=== PATIENT | female | born 1970 | race Caucasian/White ===

== ENCOUNTER → 2018-07-15 | Outpatient (CLI) | payer BC ==
--- NOTE | 2018-07-18 10:03 | MM ---
Reason for exam: screening (asymptomatic). Last mammogram was performed 3 years and 1 month ago. History: Patient had first child at age 40. Took hormonal contraceptives for 15 years. Physical Findings: A clinical breast exam by your physician is recommended on an annual basis and results should be correlated with mammographic findings. MG 3D Screening Mammo W/Cad Bilateral CC and MLO view(s) were taken. Prior study comparison: June 12, 2015, bilateral MG screening mammo w CAD. July 27, 2012, bilateral screening mammogram free. The breast tissue is heterogeneously dense. This may lower the sensitivity of mammography. There are benign appearing round calcifications bilaterally. There is no discrete abnormality. ASSESSMENT: Benign, BI-RAD 2 RECOMMENDATION: Routine screening mammogram of both breasts in 1 year.
== END | disposition home or self-care (01) ==
LOC: RADMAMWWP 14:01
PROVIDERS: ATTEND Obstetrics & Gynecology
DX: Z12.31 Encounter for screening mammogram for malignant neoplasm of breast (principal)
CPT/HCPCS: 77063; 77067

== ENCOUNTER → 2020-05-31 | Outpatient (CLI) | payer BC ==
--- NOTE | 2020-06-04 08:23 | MM ---
Reason for exam: screening (asymptomatic). Last mammogram was performed 1 year and 11 months ago. History: Patient had first child at age 40. Took hormonal contraceptives for 15 years. Physical Findings: A clinical breast exam by your physician is recommended on an annual basis and results should be correlated with mammographic findings. MG Screening Mammo w CAD Bilateral CC and MLO view(s) were taken. Prior study comparison: July 15, 2018, bilateral MG 3d screening mammo w/cad. June 12, 2015, bilateral MG screening mammo w CAD. The breast tissue is heterogeneously dense. This may lower the sensitivity of mammography. Benign appearing bilateral calcifications. No significant changes when compared with prior studies. ASSESSMENT: Benign, BI-RAD 2 RECOMMENDATION: Routine screening mammogram of both breasts in 1 year.
== END | disposition home or self-care (01) ==
LOC: RADMAMWWP 07:39
PROVIDERS: ATTEND Obstetrics & Gynecology
DX: Z12.31 Encounter for screening mammogram for malignant neoplasm of breast (principal)
CPT/HCPCS: 77067

== ENCOUNTER → 2020-09-11 | Outpatient (CLI) | payer BC ==
[2020-09-11 19:40] LABS: Codfish IgE <0.10 kU/L; Egg White IgE <0.10 kU/L
[2020-09-11 19:42] LABS: Peanut IgE <0.10 kU/L; Soybean IgE <0.10 kU/L
[2020-09-11 19:43] LABS: Clam IgE <0.10 kU/L; Shrimp IgE <0.10 kU/L; Walnut IgE (Food) <0.10 kU/L
[2020-09-11 19:44] LABS: Scallop IgE <0.10 kU/L
[2020-09-12 12:04] LABS: ANA Pattern Speckled
== END | disposition home or self-care (01) ==
LOC: LABWHC1 13:06
PROVIDERS: ATTEND Otolaryngology
DX: J30.89 Other allergic rhinitis (principal); R53.83 Other fatigue; R21 Rash and other nonspecific skin eruption
CPT/HCPCS: 36415; 82785; 85652; 86003; 86038; 86039; 86431

== ENCOUNTER 2022-10-20 08:56 | Day surgery (SDC) | payer BC ==
[2022-10-16 09:14] VITALS: BMI 26.6
[~2022-10-20 08:56] MED LIST: LACTATED RINGERS 1,000 ML IV SCH; LIDOCAINE 1% (10MG/ML) FOR IV START INTRADERMA PRN
[2022-10-20 09:58] VITALS: RESP 16; TEMP 98
[2022-10-20] MEDS ORDERED: PROPOFOL 10 MG/ML 20 ML VIAL IV ONE (10:18)
[2022-10-20] MEDS ORDERED: LIDOCAINE 2% INJ 20 MG/ML (2 ML VIAL) ONE (10:18)
--- NOTE | 2022-10-20 10:26 | P.GSHP ---
History of Present Illness H&P Date: 10/20/22 Chief Complaint: Colon cancer screening 52-year-old female here today for colonoscopy. She has not had 1 previously. No bowel related complaints. No family history of colon cancer. Past Medical History Past Medical History: No Reported History Additional Past Medical History / Comment(s): rosacea History of Any Multi-Drug Resistant Organisms: None Reported Past Surgical History: No Surgical Hx Reported Past Anesthesia/Blood Transfusion Reactions: No Reported Reaction, Motion Sickness Smoking Status: Former smoker - Past Family History Father Family Medical History: No Reported History Mother History Unknown: Yes Medications and Allergies Home Medications Medication Instructions Recorded Confirmed Type Cholecalciferol [Vitamin D3 (25 2,000 unit PO DAILY 10/16/22 10/20/22 History Mcg = 1000 Iu)] Monocycline 50 mg TOPICAL DAILY PRN 10/16/22 10/20/22 History Vitamin B Complex/Folic Acid 0.4 mg PO DAILY 10/16/22 10/20/22 History [Vitamin B Complex Tablet] Zinc Gluconate [Zinc] 50 mg PO DAILY 10/16/22 10/20/22 History Allergies Allergy/AdvReac Type Severity Reaction Status Date / Time No Known Allergies Allergy Verified 10/20/22 09:43 Surgical - Exam Vital Signs Temp Pulse Resp BP Pulse Ox 98.0 F 74 16 110/63 98 10/20/22 09:50 10/20/22 09:50 10/20/22 09:50 10/20/22 09:50 10/20/22 09:50 Physical exam: General: Well-developed, well-nourished HEENT: Normocephalic, sclerae nonicteric Abdomen: Nontender, nondistended Extremities: No edema Neuro: Alert and oriented Assessment and Plan (1) Colon cancer screening Narrative/Plan: Will proceed with colonoscopy at this time. Current Visit: Yes Status: Acute Code(s): Z12.11 - ENCOUNTER FOR SCREENING FOR MALIGNANT NEOPLASM OF COLON SNOMED Code(s): 050305398
--- NOTE | 2022-10-20 10:41 | P.PCN ---
Date of Procedure: 10/20/22 Procedure(s) Performed: PREOPERATIVE DIAGNOSIS: Colon cancer screening POSTOPERATIVE DIAGNOSIS: Transverse colon polyp, diverticulosis PROCEDURE: Colonoscopy with snare polypectomy ANESTHESIA: MAC SURGEON: Carlos Alfaro M.D. SPECIMENS: Polyp ENDOSCOPIC PROCEDURE: The patient was placed on the endoscopy table in the left decubitus position. The Olympus colonoscope was inserted into the anus and passed under direct visualization to the base of the cecum. The appendiceal orifice was visualized. From that point the scope was slowly withdrawn inspecting all surfaces carefully. There were no neoplastic inflammatory or polypoid lesions throughout the cecum or ascending colon. In the transverse colon a small polyp was seen and removed using snare cautery technique. The remainder of the transverse descending sigmoid and rectum appeared normal. Patient had mild scattered diverticulosis. Digital rectal examination was normal. The patient was taken to the recovery room in stable condition per anesthesia guidelines. RECOMMENDATIONS: Await biopsy results. Anticipate repeat colonoscopy 5-7 years.
[2022-10-20 11:02] VITALS: BP 102/64; PULSE 82
== END 2022-10-20 11:25 | disposition home or self-care (01) ==
LOC: ORWHC2ENDO 08:56
PROVIDERS: ATTEND Surgery
DX: Z12.11 Encounter for screening for malignant neoplasm of colon (principal); K63.5 Polyp of colon; K57.30 Diverticulosis of large intestine without perforation or abscess without bleeding; Z87.891 Personal history of nicotine dependence; Z79.899 Other long term (current) drug therapy
CPT/HCPCS: 81025; 88305; 45385; J2704; J2001

== ENCOUNTER → 2023-01-29 | Outpatient (CLI) | payer BC ==
--- NOTE | 2023-02-01 16:25 | MM ---
Reason for Exam: Screening (asymptomatic). Last mammogram was performed 2 year(s) and 8 month(s) ago. Patient History: Menarche at age 14. First Full-Term at age 40. Late child-bearing (after 30). Patient used Hormonal Contraceptives for 15 years. Last menstrual period: 01/10/2023 Risk Values: Elba 5 year model risk: 1.4%. NCI Lifetime model risk: 12.0%. Prior Study Comparison: 06/12/2015 Bilateral Screening Mammogram, [facility]. 07/15/2018 Bilateral Screening Mammogram, [facility]. 05/31/2020 Bilateral Screening Mammogram, [facility]. Tissue Density: The breast tissue is extremely dense which could obscure a lesion on mammography. Findings: Analyzed By CAD. Pattern appears symmetrical and stable. No significant interval change is evident. No suspicious groups of microcalcifications, spiculated or lobular masses, architectural distortion or other secondary signs of malignancy are mammographically apparent. Overall Assessment: Benign, BI-RAD 2 Management: Screening Mammogram of both breasts in 1 year. A negative mammogram report should not preclude additional follow up of suspicious palpable abnormalities. Patient should continue monthly self breast exam. A clinical breast exam by your physician is recommended on an annual basis and results should be correlated with mammographic findings. Electronically signed and approved by: Alon Almaraz D.O. Radiologis
== END | disposition home or self-care (01) ==
LOC: RADMAMWWP 11:19
PROVIDERS: ATTEND Family Medicine
DX: Z12.31 Encounter for screening mammogram for malignant neoplasm of breast (principal)
CPT/HCPCS: 77067

== ENCOUNTER → 2023-04-08 | Outpatient (CLI) | payer BC ==
--- NOTE | 2023-04-09 15:13 | US ---
EXAMINATION TYPE: US transvaginal DATE OF EXAM: 04/08/2023 COMPARISON: NONE CLINICAL INDICATION: Female, 53 years old with history of N93.8 DUB; DUB TECHNIQUE: Transvaginal (TV). EXAM MEASUREMENTS: Uterus: 7.4 x 4.6 x 5.5 cm Endometrial Stripe: .5 cm Right Ovary: 2.2 x 2.8 x 1.6 cm Left Ovary: 4.0 x 2.6 x 3.4 cm 1. Uterus: Anteverted Nabothian cysts seen. 2. Endometrium: wnl 3. Right Ovary: Anechoic areas seen largest 1.9 x 1.4 x 1.5 cm. This may be 2 adjacent cysts or a se ptated cyst. Follow-up is recommended. 4. Left Ovary: Multiple follicles seen. 5. Bilateral Adnexa: wnl 6. Posterior cul-de-sac: wnl IMPRESSION: 1. Cysts and follicles present bilaterally. Follow-up is recommended.
== END | disposition home or self-care (01) ==
LOC: RADUSWWP 16:03
PROVIDERS: ATTEND Obstetrics & Gynecology
DX: N83.02 Follicular cyst of left ovary (principal); N83.01 Follicular cyst of right ovary; N93.8 Other specified abnormal uterine and vaginal bleeding
CPT/HCPCS: 76830

== ENCOUNTER → 2024-03-17 | Outpatient (CLI) | payer BC ==
[2024-03-17 15:22] LABS: LDL Cholesterol,Calculated 98.9 mg/dL (0.0-131.0)
== END | disposition home or self-care (01) ==
LOC: LABWHC1 08:23
PROVIDERS: ATTEND Family Medicine
DX: Z00.00 Encounter for general adult medical examination without abnormal findings (principal)
CPT/HCPCS: 36415; 80061; 83036

== ENCOUNTER → 2024-04-03 | Outpatient (CLI) | payer BC ==
--- NOTE | 2024-04-03 15:47 | US ---
EXAMINATION TYPE: US transvaginal DATE OF EXAM: 04/03/2024 COMPARISON: 04/08/2023 CLINICAL INDICATION: Female, 54 years old with history of N83.201 UNSPECIFIED OVARIAN CYST,; Second episode of menses lasting 5ish weeks. skipped cycles in November, December, and January. TECHNIQUE: TV only ordered Date of LMP: october EXAM MEASUREMENTS: Uterus: 9.4 x 4.4 x 5.3 cm Endometrial Stripe: 1.0 cm Right Ovary: 4.5 x 3.4 x 4.3 cm Left Ovary: 2.5 x 1.3 x 0.9 cm 1. Uterus: ? Hyperechoic area posterior fundal area = 3.4 x 2.1 x 2.5 cm 2. Endometrium: wnl 3. Right Ovary: Simple cyst redemonstrated = 3.8 x 2.7 x 3.7 cm 4. Left Ovary: wnl 5. Bilateral Adnexa: wnl 6. Posterior cul-de-sac: wnl Incidental nabothian cysts. Measured region of the endometrium measures up to 1 cm. There is a hypere choic region in the posterior fundal area which may represent endometrium versus fibroid measuring up to 2.1 cm in thickness. Increased size of right ovarian simple thin-walled cyst. IMPRESSION: 1. Hyperechoic region within the posterior uterine fundus which may represent endometrial thickening versus fibroid. Further evaluation with pelvic MRI is recommended. 2. Increased size of right ovarian simple thin-walled cyst. This can be further evaluated with recom mendation for #1.
--- NOTE | 2024-04-04 09:53 | MM ---
Reason for Exam: Screening (asymptomatic). Last mammogram was performed 1 year(s) and 2 month(s) ago. Patient History: Menarche at age 14. First Full-Term at age 40. Late child-bearing (after 30). Patient has history of breast feeding. Patient used Hormonal Contraceptives for 15 years. Last menstrual period: 02/22/2023 Risk Values: Elba 5 year model risk: 1.5%. NCI Lifetime model risk: 11.8%. Prior Study Comparison: 07/15/2018 Bilateral Screening Mammogram, [facility]. 05/31/2020 Bilateral Screening Mammogram, [facility]. 01/29/2023 Bilateral MG screening mammo w CAD, [facility]. Tissue Density: The breasts are heterogeneously dense, which may obscure small masses. Findings: Analyzed By CAD. There is no suspicious group of microcalcifications or new suspicious mass in either breast. 9 calcifications. Overall Assessment: Benign, BI-RAD 2 Management: Screening Mammogram of both breasts in 1 year. . Patient should continue monthly self-breast exams. A clinical breast exam by your physician is recommended on an annual basis. This exam should not preclude additional follow-up of suspicious palpable abnormalities. Note on Elba scores and lifetime risk: 1. A Elba score greater than 3% is considered moderate risk. If this is the case, consider specialist referral to assess eligibility for a risk reducing agent. 2. If overall lifetime risk for the development of breast cancer is 20% or higher, the patient may qualify for future screening with alternating mammogram and breast MRI. Electronically signed and approved by: Jason Taylor M.D. Radiologis
== END | disposition home or self-care (01) ==
LOC: RADMAMWWP 14:44
PROVIDERS: ATTEND Family Medicine
DX: Z12.31 Encounter for screening mammogram for malignant neoplasm of breast (principal); N83.201 Unspecified ovarian cyst, right side
CPT/HCPCS: 76830; 77063; 77067

== ENCOUNTER 2024-07-17 08:35 | Day surgery (SDC) | payer BC ==
[2024-07-17] MEDS: LIDOCAINE 1%-EPI 1:100,000 20 ML VIAL SQ ONE (07:27)
[2024-07-17] MEDS: SILVER NITRATE APPLICATOR 1 EACH STICK..EA. TOPICAL ONE (07:28)
[~2024-07-17 08:35] MED LIST changes: -LACTATED RINGERS 1,000 ML IV SCH; +Pre Op ABX Message 1 EACH MISC MISCELLANE ONE; +droPERidol 5 MG/2 ML VIAL IVP ONE
[2024-07-17] MEDS: IV FLUID CONTINUATION 1,000 ML IV ONE (08:49)
[2024-07-17] MEDS: LACTATED RINGERS 1,000 ML IV SCH (09:13)
[2024-07-17] MEDS: ONDANSETRON 4 MG/2 ML VIAL IVP ONE (09:13)
[2024-07-17] MEDS: DEXAMETHASONE SOD PHOSPHATE 4 MG/ML 1 ML VIAL IV ONE (09:13)
[2024-07-17] MEDS ORDERED: KETOROLAC 15 MG/ML 1 ML VIAL ONE (09:30)
[2024-07-17] MEDS ORDERED: PROPOFOL 10 MG/ML 20 ML VIAL IV ONE (09:30)
[2024-07-17] MEDS ORDERED: fentaNYL (PF) 50 MCG/ML 2 ML AMP ONE (09:30)
[2024-07-17] MEDS ORDERED: MIDAZOLAM 2 MG/2 ML VIAL ONE (09:30)
[2024-07-17] MEDS ORDERED: LIDOCAINE 1% INJ 10MG/ML (20 ML MDV) ONE (09:30)
--- NOTE | 2024-07-17 10:11 | P.OP ---
Date of Procedure: 07/17/24 Preoperative Diagnosis: Dysfunctional uterine bleeding, heavy menstrual bleeding Postoperative Diagnosis: Same Procedure(s) Performed: Hysteroscopy, dilation curettage, endometrial ablation with NovaSure Anesthesia: MAC Surgeon: Monika Mendez Estimated Blood Loss (ml): 5 IV fluids (ml): 500 Urine output (ml): 50 Pathology: other (Endometrial curettings) Condition: stable Disposition: PACU Indications for Procedure: Dysfunctional uterine bleeding, heavy at times. Last menstrual cycle lasting 14+ days Operative Findings: Normal-appearing atrial cavity Description of Procedure: Patient was taken back to the operating suite where general anesthesia was obtained without difficulty by the anesthesia department. She was prepped and draped in the normal sterile fashion dorsolithotomy position. A red rubber catheter was used to drain the bladder of clear yellow urine. A weighted speculum was placed in the posterior vaginal vault the anterior lip of the cervix was visualized and grasped with a single-tooth tenaculum. Endocervical canal was then serially dilated. Hysteroscope was placed through the cervix and toward the uterine cavity. An intact cavity was appreciated with the above- noted findings. Pictures were taken and the hysteroscope was removed. Sharp curettage was then performed and the sample was then sent to pathology for analysis. The NovaSure device was then opened and set to the appropriate measurements for this patient's uterine cavity. A length of 4, width of 2.5, power of 55 for a total cycle length of 70 seconds after cavity assessment was passed. After the cycle was complete the device was removed without difficulty. The single-tooth tenaculum was taken off of the anterior lip of the cervix hemostasis was noted. All counts were noted be correct x 2. Patient tolerated procedure well and was taken the recovery room awake in stable condition.
[2024-07-17 10:19] VITALS: TEMP 97
[2024-07-17] MEDS: HYDROmorphone 0.5 MG/0.5 ML SYRINGE IVP PRN (10:33)
[2024-07-17 12:29] VITALS: RESP 18
[2024-07-17 13:03] VITALS: PULSE 60
[2024-07-17 13:05] VITALS: BP 107/67
== END 2024-07-17 13:07 | disposition home or self-care (01) ==
LOC: OR 08:35
PROVIDERS: ATTEND Obstetrics & Gynecology Obstetrics
DX: N93.8 Other specified abnormal uterine and vaginal bleeding (principal); D64.9 Anemia, unspecified; N92.0 Excessive and frequent menstruation with regular cycle; N84.0 Polyp of corpus uteri; N72 Inflammatory disease of cervix uteri; L71.9 Rosacea, unspecified; Z87.891 Personal history of nicotine dependence; Z79.2 Long term (current) use of antibiotics
CPT/HCPCS: 88305

== ENCOUNTER → 2025-04-06 | Outpatient (CLI) | payer BC ==
--- NOTE | 2025-04-06 11:30 | MM ---
Reason for Exam: Screening (asymptomatic). Last screening mammogram was performed 12 month(s) ago. Patient History: Menarche at age 14. First Full-Term at age 40. Late child-bearing (after 30). Patient has history of breast feeding. Patient used Hormonal Contraceptives for 15 years. Risk Values: Elba 5 year model risk: 1.5%. NCI Lifetime model risk: 11.6%. Prior Study Comparison: 05/31/2020 Bilateral Screening Mammogram, [facility]. 01/29/2023 Bilateral MG screening mammo w CAD, [facility]. 04/03/2024 Bilateral MG 3D screening mammo w/cad, [facility]. Tissue Density: The breasts are extremely dense, which lowers the sensitivity of mammography. Findings: Analyzed By CAD. There is no suspicious group of microcalcifications or new suspicious mass in either breast. Overall Assessment: Benign, BI-RAD 2 Management: Screening Mammogram of both breasts in 1 year. . Patient should continue monthly self-breast exams. A clinical breast exam by your physician is recommended on an annual basis. This exam should not preclude additional follow-up of suspicious palpable abnormalities. Note on Elba scores and lifetime risk: 1. A Elba score greater than 3% is considered moderate risk. If this is the case, consider specialist referral to assess eligibility for a risk reducing agent. 2. If overall lifetime risk for the development of breast cancer is 20% or higher, the patient may qualify for future screening with alternating mammogram and breast MRI. [facility], , 04/06/2025 11:27 AM. Electronically signed and approved by: Jason Taylor M.D. Radiologis
== END | disposition home or self-care (01) ==
LOC: RADMAMWWP 11:02
PROVIDERS: ATTEND Obstetrics & Gynecology Obstetrics
DX: Z12.31 Encounter for screening mammogram for malignant neoplasm of breast (principal); R92.343 Mammographic extreme density, bilateral breasts; Z92.0 Personal history of contraception
CPT/HCPCS: 77063; 77067